=== PATIENT | female | born 1965 | race Caucasian/White ===

== ENCOUNTER 2019-08-03 11:47 | Inpatient (IN) | payer OTHER ==
[~2019-08-03] VITALS: Ht 157.5 cm; Wt 68.0 kg
[~2019-08-03 11:47] MED LIST: HYDROCODONE-AP1 EAC6 PO; IBUPROFEN 400400 M2 PO; IBUPROFEN 600600 M1 PO; IBUPROFEN 800800 MG PO; LEVEMIR SUBQ; LISINOPRIL10 MG PO; LOPRESSOR25 PO; METFORMIN HCL500 MG PO; ONDANSETRON HCL4 M2 PO; PERCOCET 5-3251 EACH PO
[2019-08-03 11:48] VITALS: BP 164/93
[2019-08-03] MEDS ORDERED: LEVEMIR FL100 UNIT/2 SUBQ (12:13)
[2019-08-03] MEDS ORDERED: LIPITOR 40 MG T40 M1 PO (12:19)
[2019-08-03] MEDS ORDERED: ASA81BEC PO (12:19)
[2019-08-03 12:34] LABS: ABSOLUTE NEUTROPHILS 6.9 thou/uL (1.4-8.2); BASOPHILS 0.7 % (0.0-2.0); HEMATOCRIT 42.2 % (37.0-47.0); HEMOGLOBIN 13.9 gm/dL (12.0-15.0); LYMPHOCYTES 25.8 % (24.0-44.0); MCH 28.6 pg (26.0-34.0); MCHC 32.9 g/dL (28.0-37.0); PLATELET COUNT 311 thou/uL (150-400); POLYS 59.5 % (36.0-66.0); RBC 4.85 mil/uL (4.20-5.00); RDW 13.8 % (10.5-14.5); WBC 11.7 thou/uL (4.0-11.0)
[2019-08-03 12:37] LABS: CALCIUM 9.8 mg/dL (8.5-10.1); CREATININE 0.6 mg/dL (0.6-1.0); POTASSIUM 4.2 mmol/L (3.5-5.1)
[2019-08-03 12:47] LABS: APTT 30.8 Seconds (24.5-32.8); D-DIMER 0.27 ug/mLFEU (0.19-0.50); PROTIME 10.7 Seconds (9.3-11.4)
[2019-08-03 12:48] LABS: TOTAL BILIRUBIN 1.6 mg/dL (<0.1-1.0); TROPONIN-I 0.07 ng/mL (<0.06)
[2019-08-03 14:33] VITALS: BP 141/98
[2019-08-03 14:40] VITALS: BP 153/62
--- NOTE | 2019-08-03 16:28 | EKG ---
[facility] [place], [place] [address] ELECTROCARDIOGRAM REPORT Name: CHUNG GALVAN Room #: 209-P ADM IN M.R.#: [id number] Admission: 08/03/19 Attend Phys: Bo Morris MD Discharge: Date of : 65 Report #: [id number] THIS REPORT FOR: cc: NO FAMILY PHYSICIAN or PCP FAM - No family physician/PCP Gregg Liu MD ~ THIS REPORT FOR: //name// [facility] [place] [place] ED Test Date: 2019-08-03 Test Time: 11:50:55 Pat Name: CHUNG GALVAN Department: Room: 209 Gender: F Pbx Operator: JAD : 1965 Requested By: Janina Gomez Order Number: [id number] MD: Gregg Liu Measurements Intervals [place] Rate: 93 P: 62 LA: 147 QRS: -12 QRSD: 94 T: 26 QT: 346 QTc: 431 Interpretive Statements Sinus rhythm Multiple premature complexes, vent & supraven LAE, consider biatrial enlargement Probable left ventricular hypertrophy No previous ECG available for comparison Electronically Signed On 08-03-2019 16:27:31 CDT by Gregg Liu [email or web address] <ELECTRONICALLY SIGNED> By: Gregg Liu MD 08/03/19 1627 1150 1150 Gregg Liu MD /EPI
--- NOTE | 2019-08-03 16:43 | 2DMMODE ---
[facility] [place] [address] 2 D/M-MODE ECHOCARDIOGRAM Name: CAILIN GALVANIGIDA Room #: 209-P ADM IN M.R.#: [id number] Admission: 08/03/19 Attend Phys: Bo Morris MD Discharge: Date of : 65 Report #: [id number] THIS REPORT FOR: cc: NO FAMILY PHYSICIAN or PCP FAM - No family physician/PCP Ben Curtis MD ~ APPROVED REPORT Study performed: 08/03/2019 15:14:30 EXAM: Comprehensive 2D, Doppler, and color-flow Echocardiogram Patient Location: Bedside Room #: 209 Status: routine BSA: 1.68 HR: 81 bpm Rhythm: NSR Other Information Study Quality: Good Indications Elevated Troponin Cardiomyopathy Chest Pain Hypertension/HDD 2D Dimensions RVDd: 28.44 mm IVSd: 12.47 (7-11mm) LVOT Diam: 16.94 (18-24mm) LVDd: 57.32 mm PWd: 12.35 (7-11mm) Ascending Ao: 22.75 (22-36mm) LVDs: 49.21 (25-40mm) Aortic Root: 27.31 mm IVC: 16.00 mm Volumes Left Atrial Volume (Systole) Single Plane 4CH: 85.77 mL Single Plane 2CH: 42.96 mL LA ESV Index: 39.00 mL/m2 Aortic Valve AoV Peak Anatoliy.: 1.27 m/s AO Peak Gr.: 6.42 mmHg LVOT Max P.36 mmHg [facility] [address] [place] [address] 2 D/M-MODE ECHOCARDIOGRAM Name: CHUNG GALVAN Room #: 209-P [facility] IN M.R.#: [id number] Admission: 08/03/19 Attend Phys: Bo Morris MD Discharge: Date of : 65 Report #: [id number] LVOT Max V: 0.77 m/s LUCY Vmax: 1.37 cm2 Mitral Valve E/A Ratio: 0.8 MV Decel. Time: 111.85 ms MV E Max Anatoliy.: 1.08 m/s MV A Anatoliy.: 1.28 m/s MV PHT: 32.44 ms IVRT: 87.66 ms Pulmonary Valve PV Peak Anatoliy.: 1.09 m/s PV Peak Gr.: 4.80 mmHg Pulmonary Vein P Vein S: 0.67 m/s P Vein A: 0.32 m/s P Vein D: 0.44 m/s P Vein A Dur.: 60.0 msec P Vein S/D Ratio: 1.52 Tricuspid Valve TR Peak Anatoliy.: 3.11 m/s TR Peak Gr.: 38.57 mmHg PA Pressure: 44.00 mmHg Left Ventricle Left ventricle is borderline dilated. There is global hypokinesis of the left ventricle. Mild concentric left ventricular hypertrophy. Left ventricular ejection fraction is moderately decreased. LVEF is 35-40%. Grade I - abnormal relaxation pattern. Right Ventricle The right ventricle is normal size. The right ventricular systolic function is normal. Atria Left atrium is dilated. The right atrium size is normal. Aortic Valve The aortic valve is normal in structure. No aortic regurgitation is present. There is no aortic valvular stenosis. Mitral Valve The mitral valve is normal in structure. Moderate to severe mitral regurgitation No evidence of mitral valve stenosis. Tricuspid Valve [facility] [address] [place] [address] 2 D/M-MODE ECHOCARDIOGRAM Name: CHUNG GALVAN Room #: 209-P [facility] IN .R.#: [id number] Admission: 08/03/19 Attend Phys: Bo Morris MD Discharge: Date of : 65 Report #: [id number] The tricuspid valve is normal in structure. There is trace tricuspid regurgitation. Estimated PAP 44 mmHg. There is moderate pulmonary hypertension. Pulmonic Valve The pulmonary valve is normal in structure. Trace pulmonic regurgitation. Great Vessels The aortic root is normal in size. IVC is normal in size and collapses >50% with inspiration. Pericardium There is no pericardial effusion. <Conclusion> Left ventricle is borderline dilated. LVEF is 35-40%. There is global hypokinesis of the left ventricle. Left atrium is dilated. The aortic valve is normal in structure. The mitral valve is normal in structure. Moderate to severe mitral regurgitation The tricuspid valve is normal in structure. There is trace tricuspid regurgitation. Estimated PAP 44 mmHg. There is moderate pulmonary hypertension. The pulmonary valve is normal in structure. Trace pulmonic regurgitation. There is no pericardial effusion. <ELECTRONICALLY SIGNED> By: Ben Curtis MD 08/03/191641 41 41 Ben Curtis MD /INF
[2019-08-03 17:00] VITALS: BP 112/46
--- NOTE | 2019-08-03 17:20 | NUR ---
I HAND DELIVERED EKG TO CCU WHEN TRANSFERRING PATIENT TO FLOOR. GIVEN TO RN WHILE IN PATIENT ROOM.
--- NOTE | 2019-08-03 17:33 | NUR ---
ASSUMMED PT CARE AT APPROXIMATELY 0700. PT A&O X4. ASSESSMENT CHARTED. FALL PRECAUTIONS IN PLACE. MANAGER RESEARCH DEVELOPMENT USED NEEDED TO ASK DIRECT QUESTIONS TO PT. PT DOES NOT SPEAK [facility]. PT'S CHILDREN C PT TO ANSWER NON-DIRECT QUESTIONS. PT DENIED HAVING SOB. PT STATED SHE DID HAVE CHEST PAIN. PT RECIEVED ANALGESICS. PT STATED ANALGESICS HELPED RELIEVE PAIN. PT AND PT'S FAMILY EDUCATED ABOUT POC. PT AND PT'S FAMILY STATED UNDERSTANDING AND DENIED HAVING FURTHER QUESTIONS. VITAL SIGNS STABLE. BLOOD SUGARS STABLE. PT COMFORTABLE. PT DENIES HAVING FURTHER CONCERNS.
[2019-08-03 19:19] VITALS: BP 169/67
[2019-08-03 19:21] VITALS: BP 116/64
[2019-08-04] VITALS (14 sets, daily range): BP systolic 101–147; BP diastolic 50–87
--- NOTE | 2019-08-04 04:34 | NUR ---
ASSUMED PT CARE AROUND 1900. FAMILY AT BEDSIDE AND THRU NIGHT. PT IS NON-[place] SPEAKING. PT HAD PARTIAL RELIEF OF PAIN FROM MEDICATIONS GIVEN. PT RESTED THRU NIGHT WITH MINIMAL INTERRUPTIONS. PT HAD NO C/O CHEST PAIN, SOA, OR N/V/D THRU NIGHT WITH NO NOTED DISTRESS. PT ON CLR LIQUID DIET FOR STRESS TEST TODAY.
--- NOTE | 2019-08-04 15:48 | NUR ---
Case opened to follow for dc planning needs. Manager Customs visited with the pt and 2 of her dtrs at bedside. They live together. The pt was working and indep prior to admission. She has health ins per her employer but does not have a card with her. Pt is German speaking only. Manager Customs was able to speak with the pt in German and her dtrs in Turkish. They will help the pt call her employer to try and get her insurance company name, gp and member ID number. The pt had a cardiac cath today. Will follow along to help confirm ins coverage for scripts and f/u care at tx.
--- NOTE | 2019-08-04 15:58 | NUR ---
ASSUMMED PT CARE AT APPROXIMATELY 0700. PT A&O X4. ASSESSMENT CHARTED. FALL PRECAUTIONS IN PLACE. PT STATED SHE HAD CHEST PAIN EARLIER IN THE SHIFT. PT RECIEVED ANALGESICS. PT STATED ANALGESICS HELPED RELIEVE PAIN. PT DENIES HAVING SOB. PT AND PT'S FAMILY EDUCATED ABOUT POC. PT AND PT'S FAMILY STATED UNDERSTANDING AND DENIED HAVING FURTHER QUESTIONS. PT HAD A CATH PROCEDURE TODAY. NO INTERVENTION. R GROIN C/D/I. NO HEMATOMA. VITAL SIGNS STABLE. BLOOD SUGARS STABLE. PT COMFORTABLE IN BED. PT DENIES HAVING FURTHER CONCERNS.
[2019-08-05] VITALS (8 sets, daily range): BP systolic 104–145; BP diastolic 38–91
[2019-08-05 05:14] LABS: HEMATOCRIT 41.7 % (37.0-47.0); HEMOGLOBIN 13.6 gm/dL (12.0-15.0); MCH 28.5 pg (26.0-34.0); MCHC 32.7 g/dL (28.0-37.0); MCV 87.3 fL (80.0-100.0); RBC 4.77 mil/uL (4.20-5.00); RDW 13.8 % (10.5-14.5); WBC 11.1 thou/uL (4.0-11.0)
--- NOTE | 2019-08-05 05:23 | NUR ---
ASSUMED PT CARE AROUND 1900. PT RESTING IN BED WITH FAMILY AT BEDSIDE. PT HAD NO C/O PAIN, SOA, N/V/D. PT GROIN SITE IS C/D/I WITH SLIGHT TENDERNESS TO TOUCH. PT DENIES PAIN MEDICATION. WILL CONTINUE TO MONITOR PT PER PLAN OF CARE.
[2019-08-05 05:26] LABS: CALCIUM 8.8 mg/dL (8.5-10.1); CREATININE 0.6 mg/dL (0.6-1.0); POTASSIUM 4.2 mmol/L (3.5-5.1)
--- NOTE | 2019-08-05 16:34 | NUR ---
RECEIVED PT'S CARE AROUND 0720; PT. ON BED; AOX4; AROUND 0800 PT. CALLED C/O CP; 01/01; NO RADIATING TO OTHER SIDE OF THE BODY; NO SUBLINGUAL NITRO ON EMAR; PRN MORPHINE; PT. REFUSED IT; ST. MORPHINE CAUSE HER HEADACHE; REQUESTED "TYLENOL"; AC REHAB LIAISON NOTIFIED; ORDERS ON PLACED; ACETAMINOPHEN GIVEN WITH AM MEDICATIONS; DURING ROUNDING PT. C/O DIZZINESS & NAUSEA; BP 104/38 (56); CARDIOLOGY REHAB LIAISON NOTIFIED; DR. DAY NOTIFIED DURING ROUNDINGS; ORDERS RECEIVED; HOSPITALIST NOTIFIED DURING ROUNDINGS; NO NEW ORDERS; MONITORING BP AFTER MEDICATION; PER HOSPITALIST MIGHT BE D/C ON 08/05/19 AFTER BP RE-ASSESSMENT AFTER GIVEN SCHEDULED BP MEDICATION; MONITORING;
[2019-08-05] MEDS ORDERED: COREG6.25 MG PO (18:50)
[2019-08-05] MEDS ORDERED: LISINOPRIL5 MG PO (18:50)
== END 2019-08-05 19:30 | disposition home or self-care (01) | DRG 303 ==
LOC: ER 11:47 → EROBS 13:41 → 2N 13:41
PROVIDERS: Internal Medicine; Physician Assistant; ADMIT Hospitalist
DX: I25.119 Atherosclerotic heart disease of native coronary artery with unspecified angina pectoris (principal); I50.20 Unspecified systolic (congestive) heart failure; E11.9 Type 2 diabetes mellitus without complications; E78.00 Pure hypercholesterolemia, unspecified; I25.9 Chronic ischemic heart disease, unspecified; E78.5 Hyperlipidemia, unspecified; I11.0 Hypertensive heart disease with heart failure; Z90.49 Acquired absence of other specified parts of digestive tract; Z90.710 Acquired absence of both cervix and uterus
CPT/HCPCS: 10081